=== PATIENT | male | born 1965 | race Caucasian/White ===

== ENCOUNTER 2020-06-21 14:24 | Outpatient (REF) | payer OTHER, SELFPAY ==
[2020-06-21 15:01] LABS: MANUAL DIFF FLAG NO
[2020-06-21 15:03] LABS: Basophils Absolute Auto 0.1 X10*3/uL (0.0-0.2); Basophils Percent Auto 0.5 % (0-2); Eosinophils Absolute Auto 0.1 X10*3/uL (0.0-0.4); Eosinophils Percent Auto 0.7 % (0-4); Hematocrit 42.1 % (42-52); Hemoglobin 13.8 g/dl (14.0-18.0); Imm Gran Abs Auto 0.04 X10*3/uL (0.00-0.03); Imm Gran Pct Auto 0.4 % (0.0-0.4); Lymphocytes Absolute Auto 2.6 X10*3/uL (1.2-4.9); Lymphocytes Percent Auto 23.9 % (20-40); Mean Corpuscular HGB Conc 32.8 g/dl (31.0-36.0); Mean Corpuscular Hemoglobin 29.9 pg (27.0-33.0); Mean Corpuscular Volume 91.3 fL (80-98); Mean Platelet Volume 10.1 fL (9.4-12.4); Monocytes Absolute Auto 0.7 X10*3/uL (0.1-1.2); Monocytes Percent Auto 6.3 % (2-11); Neutrophils Absolute Auto 7.3 X10*3/uL (2.0-8.3); Neutrophils Percent Auto 68.2 % (45-73); Platelet Count 417 X10*3/uL (160-400); Red Blood Count 4.61 X10*6/uL (4.60-5.80); Red Cell Distribution Width 13.5 % (11.0-16.0); White Blood Count 10.7 X10*3/uL (4.8-10.8)
[2020-06-21 15:58] LABS: Alanine Aminotransferase 13 U/L (0-40); Albumin Level 4.8 g/dL (3.5-5.0); Alkaline Phosphatase 53 U/L (39-117); Anion Gap 14 (12-20); Aspartate Amino Transferase 10 U/L (5-37); Bilirubin Direct 0.2 mg/dL (0.0-0.5); Bilirubin Total 0.5 mg/dL (0.0-1.0); Blood Urea Nitrogen 14 mg/dL (9-16); Carbon Dioxide 25 mmol/L (22-29); Chloride 105 mmol/L (96-108); Estimated Glomerular Filt Rate > 60; Glucose Random 123 mg/dL (60-115); Potassium 5.1 mmol/l (3.3-5.1); Sodium 139 mmol/L (135-145); Total Protein 7.2 g/dL (6.5-8.0)
[2020-06-29 02:47] LABS: JCV Antibody POSITIVE
== END 2020-06-21 14:25 | disposition home or self-care (01) ==
LOC: HO.LAB 14:24
PROVIDERS: Visit Provider Psychiatry & Neurology Neurology
DX: G35 Multiple sclerosis (principal)
CPT/HCPCS: 36415; 80051; 80076; 82565; 82947; 84520; 85025; 86711

== ENCOUNTER → 2020-07-20 09:30 | Outpatient (BNVA) | payer OTHER, SELFPAY | PROVIDERS: Visit Provider Anesthesiology | DX: G89.4 Chronic pain syndrome (principal); M96.1 Postlaminectomy syndrome, not elsewhere classified; G35 Multiple sclerosis | CPT/HCPCS: 99202 ==

== ENCOUNTER 2020-07-25 15:38 | Outpatient (RCR) | payer OTHER, SELFPAY | END 2020-08-18 23:55 | disposition home or self-care (01) | LOC: HO.PAOS 15:38 | PROVIDERS: Visit Provider Counselor Mental Health | DX: F43.8 Other reactions to severe stress (principal) | CPT/HCPCS: 90791 ==

== ENCOUNTER → 2020-07-28 13:29 | Outpatient (BNVA) | payer OTHER, SELFPAY | PROVIDERS: Visit Provider Anesthesiology | DX: G89.4 Chronic pain syndrome (principal); M96.1 Postlaminectomy syndrome, not elsewhere classified; G35 Multiple sclerosis | CPT/HCPCS: 99212 ==

== ENCOUNTER 2020-08-02 15:45 | Outpatient (REF) | payer OTHER, SELFPAY ==
--- NOTE | 2020-08-02 16:00 | MR_ITS ---
MR CERVICAL SPINE WITHOUT CONTRAST CLINICAL INFORMATION: Cervicalgia. COMPARISON: None available. TECHNIQUE: MRI of the cervical spine was obtained using routine sequences without contrast. FINDINGS: Cervical alignment is normal. The vertebral body heights are maintained. The disc volumes are preserved. There is no bone marrow edema. There are no acute fractures. Craniocervical junction is unremarkable. Partially imaged intracranial compartment is unremarkable. Cervical arterial flow voids are maintained. There are no significant soft tissue findings. Possible cord signal changes throughout the cervical spinal cord though assessment is very limited by the degree of artifact. Repeat study with sedation with and without contrast would be helpful in excluding any true cord signal abnormality. C2-C3: Uncovertebral joint spurring and hypertrophic facet arthropathy result in moderate to severe left-sided foraminal stenosis. No central canal and no right foraminal stenosis. C3-C4: Disc osteophyte without central canal stenosis. Uncovertebral joint spurring and hypertrophic facet arthropathy result in mild bilateral foraminal encroachment. C4-C5: Uncovertebral joint spurring and hypertrophic facet arthropathy result in severe left-sided foraminal stenosis. No central canal and no right foraminal stenosis. C5-C6: Uncovertebral joint spurring and hypertrophic facet arthropathy result in severe bilateral foraminal stenosis. There is no central canal stenosis. C6-C7: Shallow left paracentral disc protrusion without central canal stenosis. Uncovertebral joint hypertrophy and hypertrophic facet arthropathy result in severe left and mild right foraminal stenosis C7-T1: Uncovertebral joint spurring results in mild left-sided foraminal encroachment. No central canal stenosis. MR/MR cervical spine wo con IMPRESSION: - Artifact versus cord signal changes throughout the cervical spinal cord with assessment very limited by the degree of motion artifact. Repeat study with sedation with and without contrast would be helpful in excluding any true cord signal abnormality. - Multilevel cervical spondylosis with multifactorial degenerative changes resulting in varying degrees of moderate to severe foraminal stenosis throughout the cervical spine as described. There is no severe central canal stenosis within the cervical spine.
--- NOTE | 2020-08-02 16:19 | XR_ITS ---
EXAMINATION: PRE-MRI SCREENING. PREVIOUS SPINAL ELECTRODES CLINICAL INFORMATION: Previous spinal electrodes placed and removed COMPARISON: None TECHNIQUE: AP and lateral FINDINGS: There is no radiopaque metallic foreign body or electrode seen in the thoracic or the lumbar spine. Thoracic kyphosis is maintained. The vertebral heights and alignment is normal. There is mild ventral spondylosis. Lumbar lordosis is maintained. There are bone grafts at L3-L4 and L4-L5 disc level and a cages at L5-S1 disc level for fusion. The posterior spine is stabilized with bilateral pedicular screws at L3 and L5 vertebra with interconnecting rods. There is L3-L5 laminectomy. XR/XR pre mri screening IMPRESSION: Unremarkable thoracic spine with no radiopaque foreign body electrodes seen. L3-L5 fusion with metallic changes at the L5-S1 disc level and metallic pedicular screws at L3 and L5 vertebra with interconnecting rods.
== END 2020-08-02 15:46 | disposition home or self-care (01) ==
LOC: HO.MRI 15:45
PROVIDERS: Visit Provider Anesthesiology
DX: M54.2 Cervicalgia (principal)
CPT/HCPCS: 72141

== ENCOUNTER 2020-08-09 06:16 | Outpatient (REF) | payer OTHER, SELFPAY ==
--- NOTE | 2020-08-09 08:22 | FL_ITS ---
EXAMINATION: XR FLUOROSCOPY WITH IMAGES CLINICAL INFORMATION: G89.4 - Chronic pain syndrome COMPARISON: None. TECHNIQUE: Fluoroscopy performed by Dalia Bryson NP. Fluoroscopy time: 0.1 minutes DAP: 1.01 Gycm2 Images: 2 FINDINGS: There is interlaminar spinal needle approximately level of L1-L2. There is rodding seen lower lumbar spine extending beyond the [id number]. FL/FL guidance in treatment room IMPRESSION: Fluoroscopy for pain management procedure.
== END 2020-08-09 06:17 | disposition home or self-care (01) ==
LOC: HO.RADIR 06:16
PROVIDERS: Visit Provider Anesthesiology
DX: G89.4 Chronic pain syndrome (principal); M96.1 Postlaminectomy syndrome, not elsewhere classified; G35 Multiple sclerosis
CPT/HCPCS: 62323; J1170; J2270; Q9967

== ENCOUNTER → 2020-08-15 16:25 | Outpatient (BNVA) | payer OTHER, SELFPAY | PROVIDERS: PCP Internal Medicine Sports Medicine; Visit Provider Anesthesiology | DX: Z76.89 Persons encountering health services in other specified circumstances (principal) ==

== ENCOUNTER → 2020-10-10 08:27 | Outpatient (BNVA) | payer OTHER, SELFPAY | PROVIDERS: PCP Internal Medicine Sports Medicine; Visit Provider Anesthesiology | DX: M96.1 Postlaminectomy syndrome, not elsewhere classified (principal); G89.4 Chronic pain syndrome; G35 Multiple sclerosis | CPT/HCPCS: 99212 ==

== ENCOUNTER 2020-12-16 06:02 | Day surgery (SDC) | payer OTHER, SELFPAY ==
[2020-10-21 13:53] VITALS: BMI 24.6
--- NOTE | 2020-12-15 09:20 | P.CONAN_ITS ---
Documented by User: Shanda Ann 12/15/20 09:27 HPI - Anesthesia Eval Consult details Narrative: 55yo M for Intrathecal Drug Delivery Implant PMFSH Active Problems Active Problems: All Active Problems (Updated 07/28/20 @ 14:28 by Enoc Edwards MD) Degeneration, intervertebral disc, cervical (Acute) Cervicalgia (Acute) Chronic pain syndrome (Acute) Multiple sclerosis (Acute) Postlaminectomy syndrome, lumbar (Acute) Past Medical History Medical History Cervicalgia Chronic pain syndrome Degeneration, intervertebral disc, cervical GERD (gastroesophageal reflux disease) Multiple sclerosis Postlaminectomy syndrome, lumbar Surgical History Surgical History History of lumbar fusion History of lumbar laminectomy Social History Social History Household Members: Family Smoking Status: Current every day smoker Packs Per Day: 0.5 Advance Directives: No Advance Directives Information Provided: Yes Meds Allergies Allergy/AdvReac Type Severity Reaction Status Date / Time No Known Allergies Allergy Verified 12/16/20 06:17 Home Medications Medication Instructions Recorded Confirmed Last Taken Type amitriptyline 50 mg tablet 50 mg PO BEDTIME 07/20/20 10/21/20 Unknown History omeprazole 20 mg capsule,delayed 20 mg PO DAILY 07/20/20 10/21/20 Unknown History release oxybutynin chloride 10 mg 10 mg PO DAILY 07/20/20 10/21/20 Unknown History tablet,extended release 24 hr phenazopyridine 200 mg tablet 200 mg PO TID 07/20/20 10/21/20 Unknown History sertraline 100 mg tablet 100 mg PO DAILY 07/20/20 10/21/20 Unknown History sulfamethoxazole 800 1 tab PO BID 07/20/20 07/28/20 Unknown History mg-trimethoprim 160 mg tablet Exam Exam Date and Time: December 15, 2020919 Height,Weight and Vital Signs: Height 5 ft 8 in Weight 73.482 kg Assessment and Plan Assessment Anesthesia Assessment: Chart Reviewed Documented by User: Robb Mcgowan MD 12/16/20 07:27 [facility] Past Medical History Medical History Cervicalgia Chronic pain syndrome Degeneration, intervertebral disc, cervical GERD (gastroesophageal reflux disease) Multiple sclerosis Postlaminectomy syndrome, lumbar Surgical History Surgical History History of lumbar fusion History of lumbar laminectomy Social History Social History Household Members: Family Smoking Status: Current every day smoker Packs Per Day: 0.5 Advance Directives: No Advance Directives Information Provided: Yes Meds Allergies Allergy/AdvReac Type Severity Reaction Status Date / Time No Known Allergies Allergy Verified 12/16/20 06:17 Home Medications Medication Instructions Recorded Confirmed Last Taken Type amitriptyline 50 mg tablet 50 mg PO BEDTIME 07/20/20 10/21/20 Unknown History omeprazole 20 mg capsule,delayed 20 mg PO DAILY 07/20/20 10/21/20 Unknown History release oxybutynin chloride 10 mg 10 mg PO DAILY 07/20/20 10/21/20 Unknown History tablet,extended release 24 hr phenazopyridine 200 mg tablet 200 mg PO TID 07/20/20 10/21/20 Unknown History sertraline 100 mg tablet 100 mg PO DAILY 07/20/20 10/21/20 Unknown History sulfamethoxazole 800 1 tab PO BID 07/20/20 07/28/20 Unknown History mg-trimethoprim 160 mg tablet Exam Airway Mallampati Class: II TM Dist: >3cm Neck ROM: Full Loose/Missing/Broken Teeth: No Heart: RRR Lungs: NL Assessment and Plan Assessment Anesthesia Assessment: Anesthesia Plan Discussed and Chart Reviewed Final Anesthetic Review NPO: Yes ASA Class: III Final Preanesthetic Review: No Changes in Pt Med Stat, Meds/Allgs Chart Reviewed, Consent Obtained/Reviewed and Anes Risks/Benef Reviewed Patient Risk: Intermediate Procedure Risk: Low Anesthetic Plan Anesthetic Plan: GA Disposition: Standard PACU
--- NOTE | 2020-12-15 15:27 | PM.OP ---
Brief Operative Note Date of Service: 12/16/20 Pre-op diagnosis: Postlaminectomy syndrome. Multiple sclerosis. Post-op diagnosis: same Procedure: Implantation of pain pump [employer]. Implants: ascenda catheter and synchromed II pain pump [employer]tron[employer] Surgeon: Enoc Edwards MD Anesthesia: GETA and GLMA Estimated blood loss (mL): 40 Condition: stable Disposition: PACU
--- NOTE | 2020-12-15 15:30 | MHC.SHP ---
Pre-Procedural Eval Section A The patient is an INPATIENT: No Changes since office visit: Yes Patient answered all questions The History & Physical has been completed within 30 days and I have reviewed it.: No Section B Chief Complaint: postlaminectomy syndrome Details of Present Illness: As above, as well as multiple sclerosis. Relevant Family History (Specify if Yes): No Relevant Social History: None Present Medications: see Short Stay Collaborative assessment Medical History: Significant History History of Previous Operations: Relevant previous surgery/procedure and date(s) Allergies: Allergies Allergy/AdvReac Type Severity Reaction Status Date / Time No Known Allergies Allergy Verified 10/10/20 08:44 Review of Systems Sugical H&P ROS: Negative: Constitution, Cardiovascular, Respiratory, Psychiatric, Hem-Onc, Allergic/Immunologic, Gastrointestinal, Genitourinary, Musculoskeletal, Integumentary, Endocrine and Eyes/Ears/Nose/Throat and Yes, Specify: Neurological (Multiple sclerosis) Exam Surgical H&P Exam: Normal: HEENT, Normal: Heart, Normal: Lungs, Normal: Extremities, Normal: Abdomen and Normal: Skin and Significant Findings: Neurological (Significant findings) Plan Diagnosis/Plan: Unchanged I have reviewed the history and physical and performed a pertinent physical examination on my patient. No changes have occurred unless specified.
[2020-12-16] VITALS (9 sets, daily range): BP systolic 101–126; BP diastolic 55–81; PULSE 69–91; RESP 14–18; TEMP 36.3–36.6; O2SAT 96–100
--- NOTE | ~2020-12-16 | FL_ITS ---
EXAMINATION: XR FLUOROSCOPY WITH IMAGES CLINICAL INFORMATION: Intrathecal drug delivery implant COMPARISON: None. TECHNIQUE: Fluoroscopy performed by Dr. Enoc Edwards. Fluoroscopy time: 1.4 minutes DAP: 9.23 Gycm2 Images: 2 FINDINGS: There is a fine guidewire overlying the posterior thoracic spinal canal with tip at level mid thoracic spine. There is mild loss of height midthoracic vertebral bodies with associated bridging osteophytes. FL/FL guidance in OR IMPRESSION: Fluoroscopy for pain management procedure.
[2020-12-16] MEDS: Lactated Ringers 1,000 ML 50 ML IV (06:36)
--- NOTE | 2020-12-16 07:13 | P.OP_ITS ---
Operative Note Operative Note Date of Service: 12/16/20 Narrative: After obtaining informed consent and explaining to the patient risks, benefits and alternatives to treat his pain, the patient was brought up to the operating room where he was positioned supine on the stretcher. [employer] monitors were applied and general anesthesia was induced with endotracheal intubation. After that the patient was transferred to the operating table on the left lateral decubital positioon. All pressure points protected. The patient received antibiotic cefazolin 2 g intravenously 30 minutes before incision. Time-out was performed delineating correct site and side of the procedure, name and date of of the patient, risk of fire, need for antibiotic prophylaxis risk of DVT and need for DVT prophylaxis. After that the patient entire back right lateral flank and side as well as right side of the anterior abdomen were prepped with chloroprep and draped with full body drape including ioban film. Sterilely drape C-arm was brought over the OR field and square pictures of the L1, L2, L3 vertebrae were demonstrated on the screen. the entrance point for the catheter was chosen as the L1-L2 interspace. In the strict midline fashion 6.5 cm vertical skin incision was made with #10 scalpel. The incision was widened with the Weitlaner retractor and deepened with electrocautery. Thorough hemostasis was obtained using electrocautery and 3-0 And packing with Surgicel . Extensive capillary bleeding was noted. The prevertebral fascia was freed from overlaying tissues. After that 100 mm introducer spinal 16 g needle was incerted under x-ray guidance in the pr ojection of the right L3 pedicle on AP view. The needle advanced under the x-ray guidance with intemittent A-P and lateral pictures toward the spinal canal. When on the lateral view the needle entered the spinal canal the stylet was removed and the clear flow of the CSF was obtain through the needle hub. Intrathecal Ascenda catheter was inserted through the needle and advanced under the x-ray guidance toward the T9 vertebral body projection. The stylet was removed from the catheter and the flow of CSF fluid straw colored and clear was observed coming from the catheter. Purse-string suture was applied surrounding the a needle and it was tied. After that the needle was withdrawn with care taken to keep the catheter in place. Anchoring device was dislodged on the catheter and advanced until it met prevertebral fascia. It was engaged on the body of the catheter. Two anchoring Tycron sutures were used to suture left wing of the anchor to prevertebral fascia and 1 anchoring suture was used to stitch in the right wing of anchoring device to prevertebral fascia. After that the thorough irrigation of the wound was performed and wound was packed with vancomycin soaked 4 x 4. Attention then was concentrated on the patient's right abdomen. Sterilely draped C-arm was brought over the operative field again and position of the patient'sright 12th rib on the RIGHT was demonstrated on the screen. 2 cm below the projection of the 12th rib to the skin of the local anesthetic lidocaine plus bupivacaine 1-1 was injected in the linear horizontal fashion. After that 9 cm incision was performed in patient's right upper quadrant alongside the injected line. Thorough hemostasis was obtained using cautery device. After that the wound was widened and made 2 cm deep . The wound was extended medially and laterally as well as caudally and cranially to form the space to accommodate the body of the pump. Thorough hemostasis was performed. The wound was irrigated with vancomycin containing normal saline and then tunneling device was used to connect both wounds and dislodged the intrathecal catheter into the side wound. Small flank side wound was used to navigate the catheter around the patient's right side. The catheter was trimmed appropriately after that and sutureless connection device was mounted on the catheter. After that sutureless connection device was connected to the pump. Aspiration of the side port of the pump revealed clear flow of CSF. Two anchoring 1-0 Tycron sutures were applied in most SUPERIOR MEDIAL AND SUPERIOR LATERAL CORNERS OF THE WOUND as well as most inferior medial corner of the wound. After that the sutures were connected to the bracket is on the body of the pump, intrathecal catheter was gathered behind the body of the pump and pump was dislodged into the wound. After that the anchoring sutures were tied. After that noncoring needle was used again to reach side port of the pump in clear flow of CSF 0.5 mL was demonstrated in the syringe connected to the noncoring needle. Thorough irrigation was performed again in both wounds. Thorough hemostasis was verified. 0 polisorb sutures were used to close both wounds, 2-0 suture of the same nature were used to approximate the skin. [place] were applied to the skin line and Bacitracin ointment was applied to the staple lines. Sterile dressing with sterile 4x4s was performed, abdominal binder was applied. Upon completion of the procedure patient was awaken extubated and taken outside of the operating room to recovery room where HE recovered uneventfully. HE went h ome without immediate complications.
[2020-12-16] MEDS: Acetaminophen 325 MG TABLET 975 MG PO (11:01)
[2020-12-16] MEDS: oxyCODONE HCl Immed Release 5 MG TABLET PO (11:02)
== END 2020-12-16 12:45 | disposition home or self-care (01) ==
PROVIDERS: Visit Provider Anesthesiology
PROC: (CPT 62362; principal; 2020-12-16 07:30)
DX: M96.1 Postlaminectomy syndrome, not elsewhere classified (principal); G89.4 Chronic pain syndrome; G35 Multiple sclerosis
CPT/HCPCS: 62362; C1755; C1772; J0690; J1100; J2250; J2370; J2405; J3010; J3370

== ENCOUNTER → 2020-12-22 10:46 | Outpatient (BNVA) | payer OTHER, SELFPAY | PROVIDERS: Visit Provider Anesthesiology | DX: M96.1 Postlaminectomy syndrome, not elsewhere classified (principal); G35 Multiple sclerosis; G89.4 Chronic pain syndrome | CPT/HCPCS: 99212 ==

== ENCOUNTER → 2020-12-29 10:52 | Outpatient (BNVA) | payer OTHER, SELFPAY | PROVIDERS: Visit Provider Anesthesiology | DX: M96.1 Postlaminectomy syndrome, not elsewhere classified (principal); G35 Multiple sclerosis; G89.4 Chronic pain syndrome | CPT/HCPCS: 99212 ==

== ENCOUNTER → 2021-01-06 15:04 | Outpatient (BNVA) | payer OTHER, SELFPAY | PROVIDERS: Visit Provider Anesthesiology | DX: M96.1 Postlaminectomy syndrome, not elsewhere classified (principal); G35 Multiple sclerosis; G89.4 Chronic pain syndrome | CPT/HCPCS: 99212 ==

== ENCOUNTER 2021-01-17 06:20 | Outpatient (REF) | payer OTHER, SELFPAY | END 2021-01-17 06:21 | disposition home or self-care (01) | LOC: HO.RADIR 06:20 | PROVIDERS: Visit Provider Anesthesiology | DX: M96.1 Postlaminectomy syndrome, not elsewhere classified (principal); G89.4 Chronic pain syndrome; G35 Multiple sclerosis | CPT/HCPCS: 62370 ==

== ENCOUNTER → 2021-02-08 14:10 | Outpatient (BNVA) | payer OTHER, SELFPAY | PROVIDERS: Visit Provider Anesthesiology | DX: M96.1 Postlaminectomy syndrome, not elsewhere classified (principal); G35 Multiple sclerosis; G89.4 Chronic pain syndrome; Z79.899 Other long term (current) drug therapy | CPT/HCPCS: 99212 ==

== ENCOUNTER 2021-02-13 16:29 | Outpatient (REF) | payer OTHER, SELFPAY | END 2021-02-13 16:30 | disposition home or self-care (01) | LOC: HO.MRI 16:29 | PROVIDERS: Visit Provider Anesthesiology | DX: Z13.89 Encounter for screening for other disorder (principal) ==

== ENCOUNTER 2021-02-14 14:56 | Outpatient (REF) | payer OTHER, SELFPAY ==
--- NOTE | ~2021-02-14 | MR_ITS ---
EXAMINATION: MR LUMBAR SPINE WITHOUT AND WITH CONTRAST CLINICAL INFORMATION: Extradural/subdural abscess. COMPARISON: No relevant prior imaging. TECHNIQUE: Multiplanar MR imaging of the lumbar spine was performed without and with contrast. A total of 7 mL Gadavist was utilized for this examination. FINDINGS: There are chronic changes of a spinal fusion. Bridging bone completely fuses the L3-L5 vertebra. There is also interbody hardware at L5-S1. It is difficult to determine the degree of osseous union at this level. Alignment is normal. Vertebral heights are preserved. Minimal type I degenerative endplate changes at L1-L2. There is loss of intervertebral disc height and T2 signal intensity at L1-L2 and L2-L3 related to disc degeneration. The tip of the conus medullaris is located at L1. No mass effect on the conus. Visualized distal cord signal intensity is normal. At L1-L2 there is a diffusely bulging disc. Bilateral facet degenerative change. Mild to moderate canal stenosis. No mass effect on the traversing or foraminal nerve roots. At L2-L3 there is a shallow central protrusion superimposed upon a bulging disc. Bilateral facet degenerative change. Mild to moderate canal stenosis. No mass effect on the traversing or foraminal nerve roots. At L3-L4 there is no canal or neuroforaminal compromise. At L4-L5 there is no canal or neuroforaminal compromise. At L5-S1 there is no canal stenosis. Although the bony anatomy is not well assessed on this examination there appears to be a laminar screw that encroaches on the right neuroforamen. Limited visualization of the retroperitoneal anatomy reveals no abnormal finding. Psoas and paraspinal muscle groups are symmetric. MR/MR lumbar spine wo/w con IMPRESSION: There are chronic changes of a spinal fusion. Bridging bone completely fuses the L3-L5 vertebra. There is also interbody fusion hardware at L5-S1. It is difficult to determine the degree of osseous union at this level. Although the bony anatomy and hardware is suboptimally assessed due to inherent limitations of MRI, there appears to be a laminar screw at L5-S1 that encroaches on the right L5-S1 neuroforamen. Comparison with prior imaging is therefore recommended if available. Otherwise a CT scan of the lumbar spine can be obtained for better anatomic characterization. Shallow protrusions and/or bulging discs cause mild to moderate canal stenosis at the levels of L1-L2 and L2-L3. No associated mass effect on the traversing or foraminal nerve roots.
== END 2021-02-14 14:57 | disposition home or self-care (01) ==
LOC: HO.MRI 14:56
PROVIDERS: Visit Provider Anesthesiology
DX: M96.1 Postlaminectomy syndrome, not elsewhere classified (principal); G06.2 Extradural and subdural abscess, unspecified; G35 Multiple sclerosis
CPT/HCPCS: 72158; A9585

== ENCOUNTER → 2021-02-27 14:05 | Outpatient (BNVA) | payer OTHER, SELFPAY | PROVIDERS: Visit Provider Anesthesiology | DX: M96.1 Postlaminectomy syndrome, not elsewhere classified (principal); G35 Multiple sclerosis; G89.4 Chronic pain syndrome | CPT/HCPCS: 62368; 99212 ==

== ENCOUNTER 2021-03-07 05:48 | Outpatient (REF) | payer OTHER, SELFPAY | END 2021-03-07 05:49 | disposition home or self-care (01) | LOC: HO.RADIR 05:48 | PROVIDERS: Visit Provider Anesthesiology | DX: M96.1 Postlaminectomy syndrome, not elsewhere classified (principal); G35 Multiple sclerosis; G89.4 Chronic pain syndrome | CPT/HCPCS: 62370 ==

== ENCOUNTER 2021-04-25 06:10 | Outpatient (REF) | payer OTHER, SELFPAY | END 2021-04-25 06:11 | disposition home or self-care (01) | LOC: HO.RADIR 06:10 | PROVIDERS: Visit Provider Anesthesiology | DX: M96.1 Postlaminectomy syndrome, not elsewhere classified (principal); G35 Multiple sclerosis; G89.4 Chronic pain syndrome | CPT/HCPCS: 62370 ==

== ENCOUNTER → 2021-05-04 11:23 | Outpatient (BNVA) | payer OTHER, SELFPAY | PROVIDERS: PCP Internal Medicine; Visit Provider Anesthesiology | DX: M96.1 Postlaminectomy syndrome, not elsewhere classified (principal); G35 Multiple sclerosis; G89.4 Chronic pain syndrome | CPT/HCPCS: 99212 ==

== ENCOUNTER 2021-05-30 07:50 | Outpatient (REF) | payer OTHER, SELFPAY | END 2021-05-30 07:51 | disposition home or self-care (01) | LOC: HO.RADIR 07:50 | PROVIDERS: Visit Provider Anesthesiology | DX: M96.1 Postlaminectomy syndrome, not elsewhere classified (principal); G35 Multiple sclerosis; G89.4 Chronic pain syndrome | CPT/HCPCS: 62370 ==

== ENCOUNTER 2021-08-29 06:21 | Outpatient (REF) | payer OTHER, SELFPAY | END 2021-08-29 06:22 | disposition home or self-care (01) | LOC: HO.RADIR 06:21 | PROVIDERS: Visit Provider Anesthesiology | DX: Z76.0 Encounter for issue of repeat prescription (principal); M96.1 Postlaminectomy syndrome, not elsewhere classified; G35 Multiple sclerosis; G89.4 Chronic pain syndrome; F17.210 Nicotine dependence, cigarettes, uncomplicated | CPT/HCPCS: J3300; Q9967 ==

== ENCOUNTER → 2021-10-04 15:38 | Outpatient (BNVA) | payer OTHER, SELFPAY | PROVIDERS: PCP Internal Medicine; Visit Provider Anesthesiology ==

== ENCOUNTER → 2021-10-13 10:24 | Outpatient (BNVA) | payer OTHER, SELFPAY | PROVIDERS: PCP Internal Medicine; Visit Provider Nurse Practitioner Family | DX: Z45.1 Encounter for adjustment and management of infusion pump (principal); M96.1 Postlaminectomy syndrome, not elsewhere classified; G89.4 Chronic pain syndrome; G35 Multiple sclerosis | CPT/HCPCS: 62370 ==

== ENCOUNTER → 2021-10-18 10:37 | Outpatient (BNVA) | payer OTHER, SELFPAY | PROVIDERS: PCP Internal Medicine; Visit Provider Anesthesiology ==

== ENCOUNTER → 2021-10-19 08:03 | Outpatient (BNVA) | payer OTHER, SELFPAY | PROVIDERS: PCP Internal Medicine; Visit Provider Anesthesiology | DX: M50.30 Other cervical disc degeneration, unspecified cervical region (principal); M96.1 Postlaminectomy syndrome, not elsewhere classified; G35 Multiple sclerosis; G89.4 Chronic pain syndrome; Z97.8 Presence of other specified devices | CPT/HCPCS: 99212 ==

== ENCOUNTER 2021-10-24 06:10 | Outpatient (REF) | payer OTHER, SELFPAY | END 2021-10-24 06:11 | disposition home or self-care (01) | LOC: HO.RADIR 06:10 | PROVIDERS: Visit Provider Anesthesiology | DX: M96.1 Postlaminectomy syndrome, not elsewhere classified (principal); G35 Multiple sclerosis; G89.4 Chronic pain syndrome | CPT/HCPCS: 62370 ==

== ENCOUNTER 2021-12-05 06:13 | Outpatient (REF) | payer OTHER, SELFPAY | END 2021-12-05 06:14 | disposition home or self-care (01) | LOC: HO.RADIR 06:13 | PROVIDERS: Visit Provider Anesthesiology | DX: M96.1 Postlaminectomy syndrome, not elsewhere classified (principal); G35 Multiple sclerosis; G89.4 Chronic pain syndrome | CPT/HCPCS: 62370 ==

== ENCOUNTER 2021-12-26 06:21 | Outpatient (REF) | payer OTHER, SELFPAY | END 2021-12-26 06:22 | disposition home or self-care (01) | LOC: HO.RADIR 06:21 | PROVIDERS: Visit Provider Anesthesiology | DX: Z13.89 Encounter for screening for other disorder (principal) ==

== ENCOUNTER 2022-03-13 06:03 | Outpatient (REF) | payer OTHER, SELFPAY | END 2022-03-13 06:04 | disposition home or self-care (01) | LOC: HO.RADIR 06:03 | PROVIDERS: Visit Provider Anesthesiology | DX: M96.1 Postlaminectomy syndrome, not elsewhere classified (principal); G35 Multiple sclerosis; G89.4 Chronic pain syndrome; M54.2 Cervicalgia | CPT/HCPCS: 62370 ==

== ENCOUNTER → 2022-05-21 08:25 | Outpatient (BNVA) | payer OTHER, SELFPAY | PROVIDERS: PCP Internal Medicine; Visit Provider Anesthesiology | DX: M96.1 Postlaminectomy syndrome, not elsewhere classified (principal); G35 Multiple sclerosis; G89.4 Chronic pain syndrome | CPT/HCPCS: 62370; 99212 ==

== ENCOUNTER → 2022-07-16 11:12 | Outpatient (BNVA) | payer OTHER, SELFPAY | PROVIDERS: PCP Internal Medicine; Visit Provider Anesthesiology | DX: M96.1 Postlaminectomy syndrome, not elsewhere classified (principal); G35 Multiple sclerosis; G89.4 Chronic pain syndrome | CPT/HCPCS: 62370; 99212 ==

== ENCOUNTER → 2022-09-19 11:34 | Outpatient (BNVA) | payer OTHER, SELFPAY | PROVIDERS: PCP Internal Medicine; Visit Provider Anesthesiology | DX: Z45.1 Encounter for adjustment and management of infusion pump (principal); M96.1 Postlaminectomy syndrome, not elsewhere classified; G35 Multiple sclerosis; G89.4 Chronic pain syndrome | CPT/HCPCS: 62370 ==

== ENCOUNTER → 2022-11-21 13:25 | Outpatient (BNVA) | payer OTHER, SELFPAY | PROVIDERS: PCP Internal Medicine; Visit Provider Anesthesiology | DX: M96.1 Postlaminectomy syndrome, not elsewhere classified (principal); G89.4 Chronic pain syndrome; M50.30 Other cervical disc degeneration, unspecified cervical region; G35 Multiple sclerosis; Z86.73 Personal history of transient ischemic attack (TIA), and cerebral infarction without residual deficits; Z76.0 Encounter for issue of repeat prescription | CPT/HCPCS: 62370; 99212 ==

== ENCOUNTER → 2023-01-16 12:58 | Outpatient (BNVA) | payer OTHER, SELFPAY | PROVIDERS: PCP Internal Medicine; Visit Provider Anesthesiology | DX: M96.1 Postlaminectomy syndrome, not elsewhere classified (principal); G35 Multiple sclerosis; G89.4 Chronic pain syndrome | CPT/HCPCS: 62370 ==

== ENCOUNTER → 2023-03-11 13:17 | Outpatient (BNVA) | payer OTHER, SELFPAY | PROVIDERS: PCP Internal Medicine; Visit Provider Anesthesiology | DX: G35 Multiple sclerosis (principal); M96.1 Postlaminectomy syndrome, not elsewhere classified; G89.4 Chronic pain syndrome | CPT/HCPCS: 62370 ==